=== PATIENT | female | born 1990 | race Caucasian/White ===

== ENCOUNTER 2021-10-20 10:54 | Emergency (ER) | payer OTHER ==
[~2021-10-20 10:54] MED LIST: COLACE 100MG C100 MG PO
[2021-10-20 11:44] LABS: HEMOGLOBIN 15.5 gm/dl (12.3-15.3); RED BLOOD COUNT 4.63 M/UL (4.00-5.10); WHITE BLOOD COUNT 10.3 K/UL (4.5-11.0)
[2021-10-20 12:13] LABS: BUN/CREATININE RATIO 14 (0-10)
[2021-10-20] MEDS ORDERED: OMNICEF 300 MG300 MG PO (14:22)
== END 2021-10-20 14:39 | disposition home or self-care (01) ==
LOC: ER1 10:54
PROVIDERS: Emergency Medicine
DX: N39.0 Urinary tract infection, site not specified (principal)
CPT/HCPCS: 71111; 80053; 81001; 84703; 85025; 85379; 87086; 96374; 96375; 99284; C9113; J0696; J2270; J2405